=== PATIENT | male | born 1950 | race Caucasian/White ===

== ENCOUNTER 2024-03-18 12:03 | Emergency (ER) | payer MEDICARE ==
[2024-03-18] MEDS: HYDROmorphone 1 MG/ML 1 ML SYRINGE IM STA (12:56)
[2024-03-18] MEDS: HYDROcodone/APAP 7.5-325MG 1 EACH TAB PO ONE (13:42)
--- NOTE | 2024-03-18 13:43 | ED ---
Extremity Problem HPI - General Chief complaint: Extremity Problem,Nontraumatic Stated complaint: Right shoulder injury Time Seen by Provider: 03/18/24 12:18 Source: patient, family, RN notes reviewed Mode of arrival: wheelchair Limitations: no limitations - History of Present Illness Initial comments: 73-year-old man presents emerged part complaint of right shoulder pain. Patient states that he injured himself 11 days ago. Patient had MRI yesterday showing labral, rotator cuff tear. He states pain is increasing his pain from holding his arm up towards his neck and down his right arm. Denies any chest pain or shortness of breath - Related Data Previous Rx's Medication Instructions Recorded HYDROcodone/APAP 7.5-325MG [[place] 1 tab PO Q6HR PRN 3 Days #12 tab 03/18/24 7.5-325] predniSONE 0 mg PO DIRECTED #62 tab 03/18/24 Allergies Allergy/AdvReac Type Severity Reaction Status Date / Time No Known Allergies Allergy Verified 03/18/24 12:16 Review of Systems ROS Statement: Those systems with pertinent positive or pertinent negative responses have been documented in the HPI. ROS Other: All systems not noted in ROS Statement are negative. Past Medical History Past Medical History: Hypertension History of Any Multi-Drug Resistant Organisms: None Reported Past Surgical History: Appendectomy, Tonsillectomy Additional Past Surgical History / Comment(s): Aortic Aneurysm Repair Past Psychological History: No Psychological Hx Reported Smoking Status: Current some day smoker Past Alcohol Use History: Occasional Past Drug Use History: None Reported General Exam Limitations: no limitations General appearance: alert, in no apparent distress Head exam: Present: atraumatic, normocephalic, normal inspection Respiratory exam: Present: normal lung sounds bilaterally. Absent: respiratory distress, wheezes, rales, rhonchi, stridor Cardiovascular Exam: Present: regular rate, normal rhythm, normal heart sounds. Absent: systolic murmur, diastolic murmur, rubs, gallop, clicks Extremities exam: Present: other (Right shoulder trapezius tenderness, pain with range of motion neurovascular intact, radial pulses equal bilaterally, judge clerk strength equal) Course Vital Signs 03/18/24 03/18/24 12:10 14:13 Temperature 97.5 F L 98.1 F Pulse Rate 78 68 Respiratory 20 18 Rate Blood Pressure 180/78 189/87 O2 Sat by Pulse 95 96 Oximetry Medical Decision Making - Medical Decision Making Was pt. sent in by a medical professional or institution ([facility], ADMITTING COUNSELOR, urgent care, hospital, or long term...) When possible be specific @ -No Did you speak to anyone other than the patient for history (EMS, parent, family, police, friend...)? What history was obtained from this source @ -No Did you review nursing and triage notes (agree or disagree)? Why? @ -I reviewed and agree with nursing and triage notes Were old charts reviewed (outside hosp., previous admission, EMS record, old EKG, old radiological studies, urgent care reports/EKG's, long term records)? Report findings @ -Viewed outpatient MRI results. Differential Diagnosis (chest pain, altered mental status, abdominal pain women, abdominal pain men, vaginal bleeding, weakness, fever, dyspnea, syncope, headache, dizziness, GI bleed, back pain, seizure, CVA, palpatations, mental health, musculoskeletal)? @ -Rotator cuff tear, labral tear, shoulder pain, dislocation, cervical discopathy. EKG interpreted by me (3pts min.). @ -None X-rays interpreted by me (1pt min.). @ -None done CT interpreted by me (1pt min.). @ -None done U/S interpreted by me (1pt. min.). @ -None done What testing was considered but not performed or refused? (CT, X-rays, U/S, labs)? Why? @ -None What meds were considered but not given or refused? Why? @ -None Did you discuss the management of the patient with other professionals (professionals i.e. [facility], ADMITTING COUNSELOR, lab, RT, psych nurse, professor of social work, patient access representative, teacher, community services officer, case picker)? Give summary @ -Discussed the case with [facility] orthopedics recommends cervical spine x- rays, analgesics and will follow-up in office on Saturday. Was smoking cessation discussed for >3mins.? @ -No Was critical care preformed (if so, how long)? @ -No Were there social determinants of health that impacted care today? How? (Homelessness, low income, unemployed, alcoholism, drug addiction, transpor tation, low edu. Level, literacy, decrease access to med. care, fpc, rehab)? @ -No Was there de-escalation of care discussed even if they declined (Discuss DNR or withdrawal of care, Hospice)? DNR status @ -No What co-morbidities impacted this encounter? (DM, HTN, Smoking, COPD, CAD, Cancer, CVA, ARF, Chemo, Hep., AIDS, mental health diagnosis, sleep apnea, morbid obesity)? @ -None Was patient admitted / discharged? Hospital course, mention meds given and route, prescriptions, significant lab abnormalities, going to OR and other pertinent info. @ -Discharge patient has follow-up with orthopedics on Saturday patient advised to use sling sparingly, analgesics and return parens discussed. Undiagnosed new problem with uncertain prognosis? @ -No Drug Therapy requiring intensive monitoring for toxicity (Heparin, Nitro, Insulin, Cardizem)? @ -No Were any procedures done? @ -No Diagnosis/symptom? @ -Right shoulder pain Acute, or Chronic, or Acute on Chronic? @ -Acute Uncomplicated (without systemic symptoms) or Complicated (systemic symptoms)? @ -Uncomplicated Side effects of treatment? @ -No Exacerbation, Progression, or Severe Exacerbation? @ -No Poses a threat to life or bodily function? How? (Chest pain, [place], [place], pneumonia, PE, COPD, DKA, ARF, appy, cholecystitis, CVA, Diverticulitis, Homicidal, Suicidal, threat to staff... and all critical care pts) @ -No Disposition Clinical Impression: Cervical pain, Rotator cuff tear, Right shoulder pain Disposition: HOME SELF-CARE Condition: Stable Instructions (If sedation given, give patient instructions): Shoulder Pain (ED) Additional Instructions: Please return to the Emergency Department if symptoms worsen or any other concerns. Prescriptions: HYDROcodone/APAP 7.5-325MG [[place] 7.5-325] 1 tab PO Q6HR PRN 3 Days #12 tab PRN Reason: pain predniSONE 0 mg PO DIRECTED #62 tab Is patient prescribed a controlled substance at d/c from ED?: Yes When asked, does pt state using other controlled substances?: No If prescribed controlled substance>3 days was MAPS reviewed?: Prescribed <3 Days If opioid is for acute pain is fill amount 7 days or less?: Yes If Rx opioid, was Start Talking consent form obtained?: Yes Referrals: Jose Daniel Landerso MD [Primary Care Provider] - 1-2 days Trevor Campos DO [Doctor of Osteopathic Medicine] - 1-2 days Time of Disposition: 13:43
[2024-03-18 14:14] VITALS: BP 189/87; PULSE 68; RESP 18; TEMP 98.1
== END 2024-03-18 14:13 | disposition home or self-care (01) ==
LOC: EC 12:03
DX: S46.011A Strain of muscle(s) and tendon(s) of the rotator cuff of right shoulder, initial encounter (principal); M54.2 Cervicalgia; F17.200 Nicotine dependence, unspecified, uncomplicated; X58.XXXA Exposure to other specified factors, initial encounter
CPT/HCPCS: 99283; 96372; J1171

== ENCOUNTER 2024-08-05 06:34 | Inpatient (IN) | payer MEDICARE ==
[2024-08-04 11:22] VITALS: BMI 24.5
[2024-08-05] MEDS ORDERED: HYDROmorphone 0.5 MG/0.5 ML SYRINGE IVP PRN ×2 (07:00→13:28)
[2024-08-05] MEDS: IV FLUID CONTINUATION 1,000 ML IV ONE (07:05)
[2024-08-05] MEDS: LIDOCAINE 1% (10MG/ML) FOR IV START INTRADERMA STA (07:30)
[2024-08-05] MEDS: LACTATED RINGERS 1,000 ML IV SCH (07:30)
[2024-08-05] MEDS: ONDANSETRON 4 MG/2 ML VIAL IVP ONE (07:45)
[2024-08-05] MEDS: MIDAZOLAM 2 MG/2 ML VIAL IV ONE (07:50)
[2024-08-05] MEDS: fentaNYL (PF) 50 MCG/ML 2 ML AMP IVP PRN (07:50)
[2024-08-05] MEDS ORDERED: NEOSTIGMINE 1 MG/ML 10 ML VIAL ONE (08:24)
[2024-08-05] MEDS ORDERED: HYDROmorphone (PF) 1 MG/ML ONE (08:24)
[2024-08-05] MEDS ORDERED: GLYCOPYRROLATE 0.2 MG/ML 2 ML VIAL ONE (08:24)
[2024-08-05] MEDS ORDERED: SUCCINYLCHOLINE CHLORIDE 200 MG/10 ML VIAL IV ONE (08:24)
[2024-08-05] MEDS ORDERED: LIDOCAINE 1% INJ 10MG/ML (20 ML MDV) ONE (08:24)
[2024-08-05] MEDS ORDERED: fentaNYL (PF) 50 MCG/ML 2 ML AMP ONE (08:24)
[2024-08-05] MEDS ORDERED: PROPOFOL 10 MG/ML 20 ML VIAL IV ONE (08:24)
[2024-08-05] MEDS ORDERED: DEXAMETHASONE SOD PHOSPHATE 10 MG/ML 1 ML VIAL ONE (08:24)
[2024-08-05] MEDS ORDERED: KETAMINE HCL IN 0.9 % NACL 50 MG/5 ML SYRINGE ONE (08:24)
[2024-08-05] MEDS ORDERED: ROCURONIUM 10 MG/ML (5 ML VIAL) IV ONE (08:24)
[2024-08-05] MEDS: ceFAZolin 2 GM in DEXTROSE 5% IN WATER 50 ML IVPB PRN (08:28)
[2024-08-05] MEDS: BUPIVACAINE (PF) 0.5% 30 ML VIAL SQ ONE (09:03)
[2024-08-05] MEDS: LACTATED RINGERS 1,000 ML IV ONE ×2 (09:04→11:14)
[2024-08-05] MEDS: LIDOCAINE 2%-EPI 1:100,000 20 ML VIAL SQ ONE (09:10)
[2024-08-05] MEDS: THROMBIN (BOVINE) 5,000 UNIT VIAL TOPICAL ONE (09:17)
--- NOTE | 2024-08-05 10:25 | XR ---
EXAMINATION TYPE: XR cervical spine 1V DATE OF EXAM: 08/05/2024 9:32 AM COMPARISON: Plain film CLINICAL INDICATION: Male, 73 years old with history of NEEDLE PLACEMENT; PHH, pain TECHNIQUE: XR cervical spine 1V, (1-2) views of the cervical spine FINDINGS: Surgical device pointing at the C5-C6 disc space. The osseous structures show normal alignment without evidence of an acute fracture. No significant ve rtebral body osteophytes or facet joint arthropathy. The intervertebral disk spaces are preserved. Pe dicles are intact. Soft tissues are within normal limits. The odontoid appears intact. Support tubes in the airway. IMPRESSION: 1. Surgical device pointing at the C5-C6 disc space. No fracture or dislocation. 2. Mild degenerative disc disease changes of the cervical spine. [facility], , 08/05/2024 10:22 AM
--- NOTE | 2024-08-05 10:36 | P.ANPRN ---
Procedure Note - Anesthesia - Invasive Line Right Arterial Line Time Out Performed: Yes Date of Procedure: 08/05/24 Time of Procedure: 07:48 Location of Patient: PreOp Preparation: Sterile Prep, Sterile Dressing Arterial Line Location: Briachial Ultrasound Used: Yes Purpose - Visualization and Identification of Vasculature: Yes Needle Guage: 20 Image Stored and Saved: Yes Narrative: Invasive line placement per sterile protocol utilized.
[2024-08-05] MEDS: ceFAZolin 1,000 MG in SODIUM CHLORIDE 0.9% IRRIGATIO 1,000 ML IRRIGATION PRN (11:14)
--- NOTE | 2024-08-05 11:44 | XR ---
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 Endotracheal tube in satis factory position. No acute postoperative competition. IMPRESSION: Fixation hardware throughout the cervical spine appears intact. No evidence for fracture. Hardware ex tends C3-C7. [facility], , 08/05/2024 11:41 AM
[2024-08-05] MEDS ORDERED: ONDANSETRON 4 MG/2 ML VIAL IVP PRN (13:28)
[2024-08-05] MEDS ORDERED: bisacodyL 10 MG SUPP RECTAL PRN (13:28)
[2024-08-05] MEDS: D5-0.45% NACL WITH KCL 20MEQ/L 1,000 ML IV SCH (14:28)
[2024-08-05] MEDS: MIDAZOLAM 2 MG/2 ML VIAL IM ONE (15:18)
--- NOTE | 2024-08-05 15:20 | P.OP ---
Date of Procedure: 08/05/24 Preoperative Diagnosis: Cervical myelopathy, severe cervical stenosis C3-4 C4-5 C5-6 C6-7, disc herniation C3-4 C4-5 C5-6 C6-7, upper extremity colopathy, upper extremity weakness, degenerative disc disease Postoperative Diagnosis: Same Anesthesia: GETA Pathology: none sent Condition: stable Disposition: PACU Description of Procedure: BRIEF OPERATIVE NOTE Preoperative Diagnosis: Cervical myelopathy, severe cervical stenosis C3-4 C4-5 C5-6 C6-7, upper extremity colopathy, upper extremity weakness, degenerative disc disease Postoperative Diagnosis: Same Procedure: Anterior cervical decompression with discectomy and fusion C3-4 C4-5 C5-6 C6-7 Placement of interbody graft C3-4 C4-5 C5-6 C6-7 Application of anterior cervical plate C C3 4-5-6 and 7 Surgeon: Dr. Santos Farm Service Adviser: José THRASHER who is present throughout the entire the case persistence during positioning, dissection, exposure, visualization, and all crucial elements of the case as well as closure. Anesthesia: General anesthesia per Dr. Rocky Robles Estimated blood loss: Approximately 100 cc Complications: None apparent Components implanted: K2M Hershey anterior cervical plate system with screws measuring 4.0 and 4.5 mm and Vikos interbody allograft bone graft with 1 cc of DBX bone putty Disposition: To recovery room in good stable condition. OPERATIVE INDICATIONS The patient has had long-standing issues in their neck and upper extremities. He was found to have evidence of significant stenosis at multiple levels in his cervical spine. He was having issues with his function including balance issues and coordination issues at his upper extremity which coordinated with evidence of cervical myelopathy at his cervical spine due to his severe stenosis. This correlated well with his neck and upper extremity symptoms. There is severe stenosis with disc herniation at multiple levels. He has been through a number of conservative management modalities without any prolonged benefit. He felt he was having worsening symptoms despite conservative care. We discussed possibly of surgical intervention and the possibly decompression with fusion at his cervical spine. The patient has been through conservative treatment. We discussed various treatment options including surgery, and the patient wishes to proceed with surgery We discussed the risk, patient's alternatives and benefits of surgery including but not limited to, risk of bleeding risk of infection, risk of need for further surgery, risk of decreased, loss of motion, muscle fu nction, malunion nonunion, hardware failure, nerve damage, paralysis, heart attack, and . OPERATIVE SUMMARY After discussing all the risks, patient alternatives and benefits at length, the patient elected to proceed with surgical intervention, signed informed consent, and presented for their procedure. The patient was seen and examined in the preoperative holding area and the surgical site was marked. The patient was given antibiotics and brought to the operating room. The patient was positioned on the operating room table in a supine position being careful to pad any bony prominences and pressure points. The patient was sedated and intubated by anesthesia in standard fashion. Once the airway and C- spine were stabilized the patient's arms were padded and tucked at her side, wit h her shoulders gently taped. The head was placed in a donut pad with the neck in good neutral alignment and position. We were careful to maintain the patient's cervical spine and good neutral alignment and position throughout. The patient was prepped and draped in a normal standard fashion. An appropriate timeout and keystone protocol performed. We were able to proceed with the surgery. The local wound area was infiltrated with local anesthetic. An incision was made vertically approximately 2-1/2 cm over the appropriate levels on the right at C5. Dissection was taken down subcutaneously to the level of the platysma which was split in line with its fibers. Dissection was taken with a carotid approach, with the trachea and esophagus medial and the carotid sheath laterally. We dissected down to the anterior surface of the vertebral bodies. Intraoperative x-ray was taken which showed a marker at the appropriate level at C5-6. With the appropriate level positively confirmed, we were able to proceed with discectomy at the appropriate levels. All of the operative levels were exposed appropriately. The patient had all their twitches back, and there was no evidence of recurrent laryngeal issue. The wound was copiously irrigated and suctioned dry as had been done periodically throughout the case. At the appropriate level/levels, starting at C 3 4 and then moving to C4-5 and then to see 5 6 and then to C6-7 similarly I established an annulotomy with an 11 blade scalpel. A discectomy was performed with a combination of pituitary rongeurs, curettes, a high-speed bur, and Kerrison rongeurs. The posterior longitudinal ligament was taken down as were any posterior osteophytes. This gave good central and bilateral foraminal decompression. There is significant stenosis at each of the levels which was remedied with the decompression. There is large disc herniation at each level and the decompression and discectomy removed the herniation as well as any posterior o steophytes to get excellent central and bilateral foraminal decompression. There is no evidence of any dural tear or leak. The endplates were prepared with a high-speed bur. With the endplates in good parallel position, I was able to size for the appropriate size interbody graft. The wound was irrigated and suctioned dry the graft was prepared and malleted into position. It had good alignment and position with the anterior surface flush with the anterior surface of the vertebral bodies. This was done similarly the appropriate levels first at C3-4 C4-5 and then at C5-6 and then at C6-7. With the grafts intact, I was able to measure and contour and appropriate sized plate. The plate was positioned at the midline over the appropriate levels from C3-C7. Screw holes were established with a hand drill and drill guide. Screws were placed in good alignment and position with excellent bony purchase. They were seated under the locking device. The construct was checked and found to be stable. Intraoperative x-ray was taken which showed good alignment and position of the implants at the appropriate levels. There was no evidence of any dural tear or leak. Good hemostasis was maintained. The wound was copiously irrigated and suctioned dry as had been done periodically throughout the case. The platysma was closed with absorbable suture. The subcutaneous tissue was closed. The subcuticular tissue was closed with absorbable suture. The wound was cleaned and dried and dressed appropriately. A hard cervical collar was placed appropriately. The patient was woken up by an esthesia, extubated, transferred back gently to their hospital bed and brought to the recovery room in good stable condition. The patient will be admitted to the hospital for appropriate postoperative care, medical management and monitoring. We will continue to follow them closely about the postoperative course.
[2024-08-05] MEDS: ceFAZolin 2 GM in DEXTROSE 5% IN WATER 50 ML IVPB SCH (15:42)
[2024-08-05] MEDS: traMADol 50 MG TAB PO PRN (17:05)
--- NOTE | 2024-08-05 17:46 | P.PN ---
Progress Note - Text Progress Note Date: 08/05/24 The patient is seen and examined. He is sitting up in bed and tolerating his dinner well. He feels he is doing nicely. Pain is well-controlled. He has been able to void small amount already The patient is making progress thus far and hopefully he will be comfortable for discharge home tomorrow. He is not quite safe with his mobility completely on his own and had like him to have better voiding before he discharges. We will see how he does with his pain control as he continues to to mobilize.
[2024-08-05] MEDS: lisinopriL 10 MG TAB PO SCH (20:27)
[2024-08-05] MEDS: CYCLOBENZAPRINE 10 MG TAB PO PRN (20:28)
[2024-08-05] MEDS: HYDROmorphone 1 MG/ML 1 ML SYRINGE IVP PRN (20:29)
[2024-08-06] MEDS: TEMAZEPAM 15 MG CAP PO PRN (01:47)
[2024-08-06] MEDS: HYDROcodone/APAP 5-325MG 1 EACH TAB PO PRN (03:02)
[2024-08-06 07:26] VITALS: BP 174/92; PULSE 80; RESP 18; TEMP 97.5
--- NOTE | 2024-08-06 11:02 | P.DS ---
Providers Date of admission: 08/05/24 06:34 Expected date of discharge: 08/06/24 Attending physician: Yue Santos Primary care physician: Jose Daniel Landeros - Discharge Diagnosis(es) (1) Cervical myelopathy Current Visit: Yes Status: Acute (2) Cervical stenosis of spinal canal Current Visit: Yes Status: Acute (3) Status post cervical spinal fusion Current Visit: Yes Status: Acute (4) Upper extremity weakness Current Visit: Yes Status: Acute (5) Radiculopathy affecting upper extremity Current Visit: Yes Status: Acute (6) Degenerative cervical disc Current Visit: Yes Status: Acute (7) Unsteady gait Current Visit: Yes Status: Acute (8) Hypertension Current Visit: Yes Status: Acute Hospital Course: This is a pleasant 73-year-old male who presented with C3-4, C4-5, C5-6, and C6- 7 severe cervical spinal stenosis, cervical myelopathy, upper extremity radiculopathy, upper extremity weakness, cervical degenerative disc disease, and unsteady gait who failed outpatient conservative therapy. He was admitted for C3-4, C4-5, C5-6, and C6/7 anterior cervical decompression and fusion. The patient tolerated the procedure well and did well postoperatively. Significantly better postoperatively. He has good range of motion of the upper extremities. He is not experiencing any significant upper extremity radiculopathy symptoms. He does have unsteadiness with his gait and drift to the right during ambulation. He has a walker at the bedside. He does feel he is ready for discharge home today. His pain has been well-controlled. Condition on day of discharge stable. Patient will be discharged home. Patient was cleared preoperatively for surgery by Dr. Tuttle. Patient currently denies any nausea, vomiting, fever, or chills. Patient is eating and voiding freely without difficulty. Patient may shower Optifoam dressing intact. Patient may remove Optifoam dressing in 3 days and shower without a dressing at that time. Patient should refrain from driving until at least after their first follow-up appointment in the office. Patient should avoi d excessive neck flexion, extension, rotation, and lateral sidebending; no overhead lifting; no lifting greater than 10 pounds. MAPS has been reviewed today, 08/06/2024, with an Overall Overdose Risk Score of 110. An "Opiod Start Talking" Form has been signed and placed in the patient's chart. A prescription has been written for 5 mg / 325 mg, 1 tab, every 6 hours, as needed for acute pain, dispense #28. Prescriptions also written for baclofen 10 mg, 1 tab, 3 times daily, as needed for muscle spasm, dispense #60 and Senokot-S, 1 tab, twice daily, as needed for constipation, dispense #60. P rescriptions are sent to the patient's pharmacy per request of the patient. He will hold Tylenol #3 while taking hydrocodone. Patient's other medical diagnoses include hypertension. Physical Exam on day of discharge: Patient is awake, alert, and oriented 3 Vital signs stable Good chest excursion with deep inspiration and expiration Abdomen soft nontender No signs or symptoms of DVT; no calf pain Reduced range of motion of the cervical spine with adequate flexion, extension, and bilateral rotation Academic Support Assistant strength, thumb strength, interosseous strength, biceps strength, triceps strength, and shoulder strength positive sustained bilaterally Hard cervical collar intact Incision is clean, dry, and intact; no erythema, purulence, or signs of infection Optifoam dressing intact Procedures: C3-4, C4-5, C5-6, and C6/7 anterior cervical decompression and fusion Patient Condition at Discharge: Stable Plan - Discharge Summary Discharge Rx Participant: No New Discharge Prescriptions: New HYDROcodone/APAP 5-325MG [[place]] 1 each PO Q6HR PRN #28 tab PRN Reason: Pain Sennosides-Docusate Sodium [Senokot-S] 1 tab PO BID PRN #60 tablet PRN Reason: Constipation Baclofen 10 mg PO TID PRN #60 tab PRN Reason: Spasms No Action lisinopriL [Zestril] 10 mg PO DAILY Acetaminophen-Codeine 300-30mg [Tylenol w/codeine #3] 1 tab PO DAILY PRN PRN Reason: Pain Discharge Medication List Acetaminophen-Codeine 300-30mg [Tylenol w/codeine #3] 1 tab PO DAILY PRN 08/04/24 [History] lisinopriL [Zestril] 10 mg PO DAILY 08/04/24 [History] Baclofen 10 mg PO TID PRN #60 tab 08/06/24 [Rx] HYDROcodone/APAP 5-325MG [[place] 5] 1 each PO Q6HR PRN #28 tab 08/06/24 [Rx] Sennosides-Docusate Sodium [Senokot-S] 1 tab PO BID PRN #60 tablet 08/06/24 [Rx] Follow up Appointment(s)/Referral(s): José Harrison, RAFAT [PHYSICIAN CLEANER WINDOW] - 2 Weeks (Patient may follow-up with José Harrison PA-C or Dr. Misha Santos at [facility] as currently scheduled following discharge.) Activity/Diet/Wound Care/Special Instructions: 1. Patient may shower with Optifoam dressing intact. 2. Patient may remove Optifoam dressing in 3 days and shower without a dressing at that time. 3. Patient may wear hard cervical collar at all times except while bathing. 4. Patient should refrain from driving until at least after their first follow- up appointment in the office. 5. Patient should avoid excessive cervical flexion, extension, and side bending; avoid overhead lifting; no lifting greater than 10 pounds 6. Take medications as prescribed 7. Patient should avoid anti-inflammatory medications over the next 6 weeks postoperatively 8. Do not soak in tub Discharge Disposition: HOME SELF-CARE
== END 2024-08-06 11:30 | disposition home or self-care (01) | DRG 473 ==
LOC: 2ORMAIN 06:34 → 4SSUR 12:00
PROVIDERS: ADMIT Orthopaedic Surgery Orthopaedic Surgery of the Spine; ATTEND Orthopaedic Surgery Orthopaedic Surgery of the Spine
PROC: 0RB30ZZ Excision of Cervical Vertebral Disc, Open Approach (ICD-10-PCS; 2024-08-05)
PROC: 01N10ZZ Release Cervical Nerve, Open Approach (ICD-10-PCS; 2024-08-05)
PROC: 4A11X4G Monitoring of Peripheral Nervous Electrical Activity, Intraoperative, External Approach (ICD-10-PCS; 2024-08-05)
PROC: 8E09XBF Computer Assisted Procedure of Head and Neck Region, With Fluoroscopy (ICD-10-PCS; 2024-08-05)
PROC: 0RG20A0 Fusion of 2 or more Cervical Vertebral Joints with Interbody Fusion Device, Anterior Approach, Anterior Column, Open Approach (ICD-10-PCS; principal; 2024-08-05 08:30)
DX: M50.023 Cervical disc disorder at C6-C7 level with myelopathy (principal); I10 Essential (primary) hypertension; M50.123 Cervical disc disorder at C6-C7 level with radiculopathy; M48.02 Spinal stenosis, cervical region; M25.78 Osteophyte, vertebrae; R26.81 Unsteadiness on feet; Z91.030 Bee allergy status
CPT/HCPCS: 72020; 72040; 86850; 86900; 86901